=== PATIENT | female | born 1980 | race Hispanic/Latino ===

== ENCOUNTER 2024-07-30 02:55 | Emergency (ER) | payer SELFPAY ==
[2024-07-30] VITALS (8 sets, daily range): BP systolic 101–131; BP diastolic 62–84
[2024-07-30] MEDS ORDERED: KETOROLAC TROMETHAMINE 30 MG/ML SDV IV ONE (03:10)
[2024-07-30 03:24] LABS: BASO% 0.3 % (0-3); HEMATOCRIT 36.5 % (37.0-47.0); HEMOGLOBIN 11.4 g/dl (12.0-16.0); IMMATURE GRANULOCYTES 0.8 % (0.0-5.0); LYMPH% 21.6 % (15-41); MEAN CELL VOLUME 83.3 fL CALC (80.0-100.0); MEAN CORPUSCULAR HGB CONC 31.2 g/dL CAL (32.0-36.0); MONO% 6.6 % (2-13); NEUT# 8.08 thou/uL (2.00-7.15); NEUT% 67.7 % (42-76); RED BLOOD COUNT 4.38 mill/uL (4.20-5.60); RED CELL DISTRI WIDTH 14.3 % (11.5-15.5)
[2024-07-30 03:28] LABS: URINE BILIRUBIN - DIPSTICK Negative (NEGATIVE); URINE BLOOD DIPSTICK Negative (NEGATIVE); URINE GLUCOSE - DIPSTICK Negative (NEGATIVE); URINE KETONE Negative (NEGATIVE); URINE LEUK ESTERASE Negative (NEGATIVE); URINE NITRITE - DIPSTICK Negative (Negative); URINE PROTEIN - DIPSTICK Negative (NEG-TRACE); URINE SPECIFIC GRAVITY 1.015; URINE UROBILINOGEN - DIPSTICK 0.2 E.U./dL (0.2)
[2024-07-30 03:35] LABS: ALBUMIN 4.2 g/dL (3.2-5.0); BILIRUBIN, TOTAL 0.5 mg/dL (0.02-1.3); CREATININE 0.8 mg/dL (0.5-1.0); POTASSIUM 4.1 mmol/l (3.5-5.1); TOTAL PROTEIN 8.1 g/dL (6.3-8.2)
[2024-07-30 03:37] LABS: URINE COLOR Yellow
[2024-07-30] MEDS ORDERED: CIPROFLOXACN500 MG PO (05:09)
[2024-07-30] MEDS ORDERED: METRONIDAZOLE500 MG PO (05:09)
== END 2024-07-30 05:53 | disposition home or self-care (01) | DRG 392 ==
LOC: ED 02:55
PROVIDERS: Family Medicine
DX: K57.32 Diverticulitis of large intestine without perforation or abscess without bleeding (principal)
CPT/HCPCS: Q9967